=== PATIENT | male | born 1990 | race African-American/Black ===

== ENCOUNTER 2020-03-25 19:35 | Emergency (ER) | payer OTHER ==
[~2020-03-25] VITALS: Ht 193 cm; Wt 81.7 kg
[2020-03-25] MEDS ORDERED: CYCLOBENZAPRINE5 MG PO (22:01)
[2020-03-25] MEDS ORDERED: PERCOCET 5-3251 EACH PO (22:01)
[2020-03-25] MEDS ORDERED: MEDROLDOSEPACK PO (22:01)
[2020-03-25 22:34] VITALS: BP 142/72
== END 2020-03-25 22:35 | disposition home or self-care (01) ==
LOC: M.ERS 19:35
DX: S33.5XXA Sprain of ligaments of lumbar spine, initial encounter (principal); X50.1XXA Overexertion from prolonged static or awkward postures, initial encounter; Y93.89 Activity, other specified; Y92.69 Other specified industrial and construction area as the place of occurrence of the external cause; Y99.9 Unspecified external cause status

== ENCOUNTER 2021-01-15 09:08 | Emergency (ER) | payer OTHER ==
[~2021-01-15] VITALS: Ht 193 cm; Wt 79.4 kg
[~2021-01-15 09:08] MED LIST: CYCLOBENZAPRINE5 MG PO; MEDROLDOSEPACK PO; PERCOCET 5-3251 EACH PO
[2021-01-15] MEDS ORDERED: IBUPROFEN 800800 MG PO (10:24)
[2021-01-15 10:29] VITALS: BP 138/71
== END 2021-01-15 10:30 | disposition home or self-care (01) ==
LOC: M.ERS 09:08
DX: S60.221A Contusion of right hand, initial encounter (principal); F17.210 Nicotine dependence, cigarettes, uncomplicated; W22.8XXA Striking against or struck by other objects, initial encounter; Y93.89 Activity, other specified; Y92.89 Other specified places as the place of occurrence of the external cause; Y99.8 Other external cause status